=== PATIENT | male | born 1945 | race Caucasian/White ===

== ENCOUNTER → 2016-09-03 | Outpatient (CLI) | payer MEDICARE, BC ==
[~2016-09-03] MED LIST: ASPI-650; PRAV40TA76; SILD25TA5; TERA1CAP36
--- NOTE | 2016-09-04 14:07 | RADRPT ---
PROCEDURE: Left knee radiographs. CLINICAL INDICATION: Left knee pain. TECHNIQUE: Four views. Weight bearing. Frontal, lateral, oblique, and patellar view. COMPARISON: 05/20/2014. FINDINGS: There is no fracture or dislocation. The soft tissues are normal. There are degenerative changes with medial joint compartment narrowing, subarticular sclerosis, and subarticular cysts, worse than seen previously. There is no other lytic or blastic lesion. There is no radiopaque foreign body. IMPRESSION: 1. Moderate to severe degenerative changes of the left knee involving the medial joint compartment, worse than seen previously. RPTAT: QQ .Fransisco Arreola MD, MD Date Time Electronically viewed and signed by .Fransisco Arreola MD, MD on 09/04/2016 14:07 .R/
== END | disposition home or self-care (01) ==
LOC: HKI 13:50
PROVIDERS: ATTEND Orthopaedic Surgery
DX: M17.12 Unilateral primary osteoarthritis, left knee (principal); M25.562 Pain in left knee; Z96.651 Presence of right artificial knee joint
CPT/HCPCS: 73564; G0463

== ENCOUNTER → 2016-09-21 | Outpatient (CLI) | payer MEDICARE, BC ==
[~2016-09-21] MED LIST changes: +ASPI-664 PO; +ASPI325T32 PO; +CHOL100062 PO; +GLUC-137 PO; +HYDR-905 PO; +LACT1CAP47 PO; +LYRI25 PO; +PANT40TA4 PO; +RED600TA PO; +TERA5CAP3 PO; +TRAM50TA2 PO
--- NOTE | 2016-09-21 14:47 | RADRPT ---
PROCEDURE: Limited x-ray of both lower extremities. CLINICAL INDICATION: Bilateral leg pain. TECHNIQUE: Single frontal view of both lower extremities was obtained from the hips to the calves. COMPARISON: Left knee radiographs dated 09/03/2016. Right knee radiographs dated 05/20/2014. FINDINGS: The hips are not well seen due to overlying dense soft tissues. There is no obvious hip fracture or dislocation. The right knee has a total arthroplasty as seen previously. There are degenerative c hanges of the left knee with medial joint compartment narrowing, subarticular sclerosis, and subarti cular cysts. IMPRESSION: 1. Grossly normal. 2. Total right knee arthroplasty. 3. Degenerative changes of the left knee. RPTAT: QQ .Fransisco Arreola MD, MD Date Time Electronically viewed and signed by .Fransisco Arreola MD, on 09/21/2016 14:46 .R/
== END | disposition home or self-care (01) ==
LOC: HKI 10:18
PROVIDERS: ATTEND Orthopaedic Surgery
DX: Z01.818 Encounter for other preprocedural examination (principal); M17.12 Unilateral primary osteoarthritis, left knee; M25.562 Pain in left knee; Z96.651 Presence of right artificial knee joint
CPT/HCPCS: 77073; G0463

== ENCOUNTER 2016-09-27 07:53 | Inpatient (IN) | payer MEDICARE, BC ==
[2016-09-27] VITALS (22 sets, daily range): BP systolic 112–174; BP diastolic 57–76; PULSE 50–64; RESP 12–20; Ht 162.6 cm; Wt 77.2 kg
[~2016-09-27] VITALS: Ht 162.6 cm; Wt 77.2 kg
[~2016-09-27 07:53] MED LIST changes: -ASPI-664 PO; -ASPI325T32 PO; -CHOL100062 PO; -GLUC-137 PO; -HYDR-905 PO; -LACT1CAP47 PO; -LYRI25 PO; -PANT40TA4 PO; -RED600TA PO; +SOD CHLORIDE 0.9% IV ONE; +SOD CHLORIDE 0.9% IVPB ONE; -TERA5CAP3 PO; -TRAM50TA2 PO; +TRANEXAMIC ACID IV ONE; +TRANEXAMIC ACID IVPB ONE
[2016-09-27] MEDS ORDERED: PREGABALIN 300 MG PO X1 PO ONE (08:30)
[2016-09-27] MEDS ORDERED: CELECOXIB 400 MG PO X1 DOSE PO ONE (08:30)
[2016-09-27] MEDS ORDERED: BUPIVACAINE LIPOSOME/PF 266 MG/20 ML VIAL INFIL ONE (08:30)
[2016-09-27] MEDS ORDERED: PAIN COCKTAIL-CEFUROXIME IRR ONE ×7 (08:30)
[2016-09-27] MEDS ORDERED: traMADOL 50 MG TAB X 1 DOSE PO ONE (08:30)
[2016-09-27] MEDS ORDERED: oxyCODONE (CR) 10 MG TAB [oxyCONTIN] X1 DOSE PO ONE (08:30)
[2016-09-27] MEDS ORDERED: CEFAZOLIN 2GM/50 ML (PMX) 50 ML X1 BEFORE INCISION IVPB ONE (08:30)
[2016-09-27] MEDS ORDERED: EXPAREL NOTE (BUPIVICAINE LIPOSOMAL) XX SCH (08:30)
[2016-09-27] MEDS ORDERED: TERA5CAP3 PO (08:53)
[2016-09-27] MEDS ORDERED: ASPI-664 PO (08:54)
[2016-09-27] MEDS ORDERED: LACT1CAP47 PO (08:57)
[2016-09-27] MEDS ORDERED: RED600TA PO (08:58)
[2016-09-27] MEDS ORDERED: CHOL100062 PO (09:02)
[2016-09-27] MEDS ORDERED: GLUC-137 PO (09:03)
[2016-09-27 09:59] LABS: INR 0.92; PROTIME 12.4 Sec (12.2-14.2)
[2016-09-27 10:00] LABS: PARTIAL THROMBOPLASTIN TIME 32.6 Sec (25.0-35.0)
--- NOTE | 2016-09-27 10:11 | HPN ---
Date/Time of Note Date/Time of Note DATE: 09/27/16 TIME: 10:11 Interval H&P Admission Note Pt. seen H&P reviewed: No system changes No change from H&P on 09/12/16 by SUE Awan ERIK N. MD Sep 27, 2016 10:11
[2016-09-27] MEDS ORDERED: POLYMYXIN B 500000 UNIT INJ ONE (10:33)
[2016-09-27] MEDS ORDERED: VANCOMYCIN 1 GM INJ ONE (10:33)
[2016-09-27] MEDS ORDERED: SODIUM CL BACTERIOSTATIC 30 ML INJ ONE (10:33)
[2016-09-27] MEDS ORDERED: ONDANSETRON 4 MG INJ ONE (10:39)
[2016-09-27] MEDS ORDERED: FENTAnyl 50 MCG/ML VIAL ONE (10:39)
[2016-09-27] MEDS ORDERED: PROPOFOL 100 ML ONE ×2 (10:39→11:58)
[2016-09-27] MEDS ORDERED: MIDAZOLAM 1 MG/ML 2 ML INJ ONE (10:39)
[2016-09-27] MEDS ORDERED: DEXAMETHASONE 4 MG/ML 1 ML INJ ONE (10:39)
[2016-09-27] MEDS ORDERED: METOCLOPRAMIDE 10 MG INJ ONE (10:39)
[2016-09-27] MEDS ORDERED: CEFAZOLIN 1 GM INJ ONE (10:51)
[2016-09-27] MEDS ORDERED: EPHEDrine SULFATE 50 MG/5 ML SYG ONE (11:10)
[2016-09-27] MEDS ORDERED: BACITRACIN 50000 UNITS INJ IRR ONE (11:57)
[2016-09-27] MEDS ORDERED: METOCLOPRAMIDE 10 MG INJ IV PRN (12:00)
[2016-09-27] MEDS ORDERED: DIPHENHYDRAMINE 50 MG INJ IV PRN (12:00)
[2016-09-27] MEDS ORDERED: ONDANSETRON 4 MG INJ IV PRN ×2 (12:00→13:30)
[2016-09-27] MEDS ORDERED: HYDROmorphONE (0.2 MG/ML) 10ML SYG IV PRN ×3 (12:00)
[2016-09-27] MEDS ORDERED: MEPERIDINE 25 MG INJ IV PRN (12:00)
[2016-09-27] MEDS ORDERED: HYDROmorphONE 2 MG/ML SYG ONE (12:39)
[2016-09-27] MEDS ORDERED: NA PHOSPHATE/BIPHOS 133 ML ENEMA PR PRN (13:30)
[2016-09-27] MEDS ORDERED: DIPHENHYDRAMINE 25 MG CAP PO PRN (13:30)
[2016-09-27] MEDS ORDERED: oxyCODONE 5 MG TAB PO PRN (13:30)
[2016-09-27] MEDS ORDERED: MAGNESIUM HYDROXIDE 30ML CUP PO PRN (13:30)
[2016-09-27] MEDS ORDERED: NACL 0.9% 3 ML SYG IV SCH (13:30)
[2016-09-27] MEDS ORDERED: ASPIRIN (EC) 325 MG TAB PO ONE (13:30)
[2016-09-27] MEDS ORDERED: BISACODYL 10 MG SUPP PR PRN (13:30)
[2016-09-27] MEDS ORDERED: HYDROmorphONE 1 MG/ML SYG IV PRN (13:30)
--- NOTE | 2016-09-27 13:36 | OPPN ---
Date/Time of Note Date/Time of Note DATE: 09/27/16 TIME: 13:35 Operative/Procedure Note Dictation # [id number] Pre-Operative Diagnosis Left Knee OA Post-Operative Diagnosis Same Procedure Left TKA [employer] Officer: SATURNINO WHITAKER PA-C Anesthesiologist: ELIDA CAMACHO MD Findings Severe OA Blood Usage/Administration None Implants/Grafts Depuy Attune TKA Estimated blood loss: 50 - 100 ml's Drains Hemovac x 1 Specimens Bone and soft tissue Complications: None Anesthesia type: spinal IGOR GONZALES MD Sep 27, 2016 13:36
--- NOTE | 2016-09-27 13:52 | OPR ---
DATE OF OPERATION: 09/27/2016 PREOPERATIVE DIAGNOSIS: Left knee osteoarthritis. POSTOPERATIVE DIAGNOSIS: Left knee osteoarthritis. OPERATION PERFORMED: Left total knee arthroplasty. SURGEON: Igor Serrato MD BRAND ADVOCATE: Singh Gifford MD COMPONENTS USED: DePuy Attune size 5 femoral component, size 5 tibial baseplate , 6 mm polyethylene insert, and a 35 patellar button. ANESTHESIA: Spinal plus general endotracheal intubation plus periarticular injection. ANESTHESIOLOGIST: Dr. Arizmendi TOURNIQUET TIME: 61 minutes. ESTIMATED BLOOD LOSS: 50 mL INTRAVENOUS FLUIDS: 2 liters of crystalloid. SPECIMENS: Bone and soft tissue. DRAINS: Hemovac x1. COMPLICATIONS: None. DISPOSITION: The patient tolerated the procedure well and was taken to the recovery room in stable condition. INDICATIONS: The patient is a 70-year-old gentleman who has had progressive worsening pain in the left knee with radiographic evidence of severe osteoarthritis. He has failed nonsurgical means of treatment to control his pain including activity modifications, pain medications, intra-articular injections and ambulatory assist devices. Despite these measures, he has had worsening pain and I felt he would benefit from a total knee arthroplasty. The risks, benefits, and alternatives of the procedure were explained in detail to the patient. I explained the risks of the surgery to include but not be limited to, bleeding and possible need for blood transfusion; infection; pain; stiffness; neurovascular injury with possible numbness, weakness, and/or paralysis anywhere from the knee down to the toes; fracture; instability; dislocation; wear and/or loosening of the prosthesis and possible need for future revision; blood clots; pulmonary embolism; and anesthetic complications such as heart attack, stroke, GI bleed, pneumonia, and/or . Ample time was allowed for the patient to ask questions, all of which were addressed and answered. The patient understood the risks involved and wished to proceed. Informed consent was signed prior to the procedure. PROCEDURE: The patient's left knee was initialed with a marking pen in the preoperative area to identify the correct operative site. The patient was brought to the operating room and transferred from the [facility] to the operating table where a spinal anesthetic was administered. The patient was then anesthetized and intubated. A Sotelo catheter was placed. A timeout was performed to confirm that the left leg was the correct operative site. The patient was given 2 g of Ancef within one hour prior to the procedure. A tourniquet was placed on the operative proximal thigh. The operative knee and lower extremity were prepped and draped in the usual sterile fashion. The operative lower extremity was elevated and exsanguinated with an Esmarch tourniquet. The proximal thigh tourniquet was inflated to 300 mmHg. The knee was flexed. A midline incision was made and carried down through the subcutaneous tissue and fat with sharp dissection. Limited medial and lateral flaps were raised. A median patellar approach was performed. Synovial fluid was normal in color and consistency. The patella was everted and the knee flexed. There were severe tricompartmental osteoarthritic changes noted. A medial release was performed at the joint line to the midcoronal plane. The ACL and PCL and remnants of the menisci were excised. The stepped drill was used to open up the femoral canal which was irrigated and sucked dry. The intramedullary guide rafael was passed up the femur, and the distal cutting block was pinned into place for a 5 degree valgus cut, taking 10 mm of bone off distally. The oscillating saw was used to make the cut. The tibia was subluxed anteriorly. The tibial cutoff jig was placed over the center of the talus distally and over the junction of the medial and middle third of the tibial tubercle proximally. The guide was pinned into place and the oscillating saw was used to make the cut. The tibia was sized. The extension gap was checked and accommodated a 6 mm spacer block with the knee in full extension. There was no varus or valgus instability. At this point, the femur was sized with the posterior referencing guide. Two holes were drilled in 3 degrees of external rotation. The two holes were in line with the transepicondylar axis, perpendicular to Iroquois's line, and in line with the tibial cutoff jig brought up with the knee flexed 90 degrees and tensed with 2 lamina spreaders, suggesting the femoral rotation was correct. The four-in-one cutting block was pinned into place. The anterior and posterior cuts and chamfer cuts were made with the oscillating saw. The flexion gap was checked and accommodated the 6 mm spacer block at 90 degrees. There was no varus or valgus instability, suggesting the flexion and extension gaps were now equal. The central box was cut out on the femur. The tibia was drilled and punched in proper rotation. Trial components were placed into position with a trial insert. The patella was cut from 25 mm down to 16 mm and sized. Three holes were drilled and the trial button placed in position. With all the trials now in place, the knee was taken through range of motion and came to full extension as evidenced by the fact that with the foot on my abdomen and axial loading, there was no tendency for the knee to flex. The knee was able to be flexed to 125 degrees with good patellar tracking with no lateral tilt or subluxation. At this point, I was satisfied with the overall range of motion, stability, and patellar tracking. The trials were removed. The real components were opened. Two bags of cement were mixed, one with and one without premixed antibiotic. The knee was irrigated with antibiotic saline and sucked dry. Once the cement was in a doughy stage, the real components were cemented into place. The knee was held in full extension, and the patellar component was held with a patellar clamp. All excess cement was removed with curettes. As the cement was hardening, the synovial/capsular layer was infiltrated with a mixture of 150 mg of 0.5% Bupivacaine, 8 mg of Duramorph, 300 mcg of epinephrine, 30 mg of Toradol, 100 mcg of clonidine, 750 mg of cefuroxime and 86 mL of normal saline, followed by an injection of 266 mg of liposomal Bupivacaine. A Hemovac drain was placed in the deep portion of the wound and brought out the anterolateral thigh. Once the cement was completely hardened, the trial liner was removed, and the real insert was opened. The tourniquet was let down, and there was good hemostasis. The knee was then irrigated with a mixture of betadine/saline and then antibiotic saline with pulsatile lavage. The real insert was impacted into the tibia and reduced onto to the femur. The arthrotomy was closed with a few interrupted #1 Ethibond in a [id number] fashion, and then closed in a watertight fashion with a running #2 Stratafix suture. Knee flexion was checked against gravity and came to 125 degrees. The subcutaneous layer was irrigated and closed with 2-0 Stratafix, and then 3-0 Vicryl and then aren on the skin. The wound was covered with an occlusive dressing, and secured with cast padding and a bias dressing. The drain was secured with 3-0 nylon. Dictated By: IGOR HAWKINS/TITI Conf#: [id number] DID#: [id number] MTDD
[2016-09-27 14:10] LABS: HEMOGLOBIN 12.4 g/dl (14.0-18.0)
[2016-09-27 14:12] LABS: POTASSIUM 4.8 mmol/L (3.5-5.1)
[2016-09-27] MEDS: CEFAZOLIN 2 GM/50 ML (PMX) 50 ML IVPB SCH ×2 (14:13→23:11)
[2016-09-27 14:20] LABS: CALCIUM 8.5 mg/dl (8.4-10.2); CREATININE 1.09 mg/dl (0.61-1.24)
--- NOTE | 2016-09-27 14:20 | RADRPT ---
PROCEDURE: XR left knee. CLINICAL INDICATION: Knee pain. TECHNIQUE: AP and lateral views are available for review. COMPARISON: No comparison available FINDINGS: There is a postoperative total knee replacement. There is no evidence of loosening of the prosthesis . The osseous structures are normal in mineralization, architecture and alignment No acute fracture or dislocation is seen.No osseous lesions are identified. There are postoperative soft tissue natarajan es. A drain is in place. . IMPRESSION: Unremarkable postoperative total knee replacement. RPTAT: HGDB .Mo Zacarias MD, MD Date Time Electronically viewed and signed by .Mo Zacarias MD, on 09/27/2016 14:19 .B/
--- NOTE | 2016-09-27 14:20 | PN ---
Date/Time of Note Date/Time of Note DATE: 09/27/16 TIME: 14:18 Assessment/Plan Lines/Catheters IV Catheter Type (from Nrsg): Peripheral IV Assessment/Plan Assessment/Plan Stable in PACU, s/p left TKA -continue abx -pain meds as needed -ASA/SCDs for DVT prophylaxis -OOB with PT -check AM labs -monitor drain -d/c vergara in AM XR of the left knee shows good alignment with no evidence of fracture or dislocation Subjective 24 Hr Interval Summary Doing well in PACU. Denies pain. Moving all extremities.l Exam/Review of Systems Vital Signs Vitals Vital Signs Date Time Temp Pulse Resp B/P Pulse Ox O2 Delivery O2 Flow Rate FiO2 09/27/16 13:41 98.4 09/27/16 13:30 63 18 124/64 99 Nasal Cannula 2.0 Exam Free Text/Dictation Dressing dry Incision clean, dry, and intact without redness or drainage Thigh soft 5/5 Quadriceps, Tibialis Anterior, EHL, Gastroc, Soleus, Peroneals Normal sensation Palpable DT/PT, CR <2 sec No distal edema Results Result Diagram: 09/27/16 1345 09/27/16 1345 SATURNINO WHITAKER PA-C Sep 27, 2016 14:19
[2016-09-27] MEDS ORDERED: BACITRACIN 50000 UNITS INJ ONE (14:58)
[2016-09-27] MEDS ORDERED: PHENYLephrine (100 MCG/ML) 5ML SYG ONE ×4 (16:20→17:02)
[2016-09-27] MEDS: LACTATED RINGER'S 1,000 ML IV SCH ×3 (16:29→18:30)
[2016-09-27] MEDS ORDERED: TRANEXAMIC ACID 770 MG in SOD CHLORIDE 0.9% 100 ML IVPB ONE ×2 (16:30→19:30)
[2016-09-27] MEDS: traMADol 50 MG TAB PO SCH ×2 (17:58→23:58)
[2016-09-27] MEDS: PANTOPRAZOLE (EC) 40 MG TAB PO SCH (17:58)
[2016-09-27] MEDS: ACETAMINOPHEN 1000MG/100ML IV 100 ML IVPB SCH ×2 (17:58→23:57)
[2016-09-27] MEDS: PREGABALIN 25 MG CAP PO SCH (20:38)
[2016-09-27] MEDS: DOCUSATE SODIUM 100 MG CAP PO SCH (20:39)
[2016-09-27] MEDS: AMLODIPINE 2.5 MG TAB PO SCH (20:39)
[2016-09-27] MEDS: CHOLECALCIFEROL 1,000 UNIT TAB PO SCH (20:39)
[2016-09-27] MEDS ORDERED: DOXAZOSIN 2 MG TAB PO SCH (21:00)
[2016-09-27] MEDS: TERAZOSIN 5 MG CAP PO SCH (21:47)
[2016-09-28] MEDS: oxyCODONE 5 MG TAB PO PRN ×4 (01:22→21:35)
[2016-09-28] MEDS: LACTATED RINGER'S 1,000 ML IV SCH ×6 (01:22→21:29)
[2016-09-28] MEDS: ACETAMINOPHEN 1000MG/100ML IV 100 ML IVPB SCH ×2 (05:43→11:57)
[2016-09-28] MEDS: PANTOPRAZOLE (EC) 40 MG TAB PO SCH ×2 (05:43→17:44)
[2016-09-28] MEDS: traMADol 50 MG TAB PO SCH ×4 (05:44→23:54)
[2016-09-28 05:49] LABS: HEMATOCRIT 36.9 % (42.0-52.0); HEMOGLOBIN 12.5 g/dl (14.0-18.0)
[2016-09-28 06:01] LABS: POTASSIUM 5.1 mmol/L (3.5-5.1)
[2016-09-28 06:04] LABS: CREATININE 1.01 mg/dl (0.61-1.24)
[2016-09-28 06:05] LABS: CALCIUM 8.5 mg/dl (8.4-10.2)
[2016-09-28 06:08] VITALS: BP 150/66; PULSE 50; RESP 19
[2016-09-28] MEDS: CEFAZOLIN 2 GM/50 ML (PMX) 50 ML IVPB SCH (06:14)
[2016-09-28 06:17] VITALS: BP 127/62
--- NOTE | 2016-09-28 07:28 | CONS ---
DATE OF ADMISSION: 09/27/2016 DATE OF CONSULTATION: 09/27/2016 TYPE OF CONSULTATION: Gastroenterology. Thank you very much for allowing me to evaluate this 70-year-old male who just underwent left total knee arthroplasty. HISTORICAL EVENTS: As you well know, this patient has had progressive disabling pain involving his left knee and elected to proceed with surgical intervention. Postoperatively, he denies cough, whee zing, shortness of breath, nausea, vomiting, abdominal or chest pain. PAST MEDICAL HISTORY: Includes: 1. Colon resection for neoplasm in 2008, erectile dysfunction. 2. History of hyperglycemia. 3. Hyperlipidemia. 4. Vitamin D deficiency. 5. History of gastroesophageal reflux without esophagitis. ALLERGIES: NONE. PAST MEDICAL HISTORY: Includes: 1. Surgery for biceps rupture, left. 2. Surgery for Achilles tendon disorder, right. 3. Inguinal hernia repair, umbilical hernia repair, right total knee surgery, left knee arthroscopi c surgery. FAMILY HISTORY: Positive for lung and brain cancer and multiple sclerosis. SOCIAL HISTORY: He has 3 children, retired. MEDICATIONS: 1. Aspirin. 2. Ocuvite. 3. Terazosin 2 mg nightly. PHYSICAL EXAMINATION: GENERAL: [place] male in no acute distress. VITAL SIGNS: BP 122/80, respirations are 20, he was afebrile. His heart rate was ____. EYES: Extraocular muscles were full. NOSE, MOUTH, AND THROAT: Normal. NECK: Supple. There was no jugular venous distention, thyroid enlargement or adenopathy. Carotids 2+. LUNGS: Clear. HEART: Rhythm regular. ABDOMEN: Nontender. Liver and spleen were not palpable. No masses or tenderness were noted. EXTREMITIES: The left knee was bandaged. Right calf nontender. No edema. IMPRESSION: 1. Stable postop with asymptomatic bradycardia. His basal heart rate was ____ and this needs to be just simply monitored. 2. Status post left knee replacement, now doing well. 3. History of hyperlipidemia. No intervention needed. 4. Will evaluate daily with signs and symptoms of thromboembolic disease, having been given appropr iate thrombosis prophylaxis. Dictated By: PHILL RAPP MD MR/NTS Conf#: [id number] DID#: [id number] CC: IGOR GONZALES MD;*EndCC*
--- NOTE | 2016-09-28 07:32 | PDOCDIS ---
Discharge Instructions DIAGNOSIS Discharge Diagnosis: s/p left TKA CONDITION Patient Condition: Good HOME CARE INSTRUCTIONS: Diet Instructions: RegularSpecial Diet: REGULAR ACTIVITY: Activity Restrictions: Slowly Increase Activity Rest between Activity Avoid heavy lifting Do not operate Machinery Do not operate Power Tool Avoid Heavy Housework Keep Limb Elevated Weight Bearing Bathing Restrictions: Shower FOLLOW UP/APPOINTMENTS Appointments follow up in the office on 10/08/16 OTHER ORDERS: Other Orders: S/P TKA Physical Therapy: Three times per week at home x 2 weeks Daily in Rehab/SNF WB STATUS: WBAT 1. Strengthening exercises for both upper and un-operated lower extremities. 2. Gait training with front wheeled walker 3. Active range of motion exercises to operative knee. 4. When not working on knee range of motion exercises, distal towel roll under operative ankle/distal calf to promote full extension. 5. DO NOT PUT ANYTHING BEHIND OPERATIVE KNEE!!! 6. Quadriceps and hamstring strengthening. 7. May switch to cane in contra lateral hand 6 weeks after surgery. 8. Physical Therapy can open case if nursing is not available. 9. Use Ice Machine as instructed from date of surgery while at rest 3X/day. 10. Patient requires mobile SCDs to reduce risk of developing DVT following TKA. Patient will use the mobile SCDs for 30 days postoperatively. Bathing assistance by home health aide twice weekly if Medicare patient. Occupational Therapy: Evaluation for assistive devices and ADL training. Wound Care: Keep incision dry & covered with Tegaderm until first visit with Dr. Serrato Anticoagulation Orders: Enteric Coated Aspirin 325 mg po bid x 6 weeks from date of surgery Follow-up:Call for an appointment with Dr. Serrato in 1 week after discharged from hospital at DME Orders: FWW, 3-in-1 Commode, Polar ice machine, Mobile SCDs SATURNINO WHITAKER PA-C Sep 28, 2016 07:32
[2016-09-28] MEDS ORDERED: ASPI325T32 PO (07:34)
[2016-09-28] MEDS ORDERED: HYDR-905 PO (07:34)
[2016-09-28] MEDS ORDERED: TRAM50TA2 PO (07:34)
[2016-09-28] MEDS ORDERED: PANT40TA4 PO (07:34)
[2016-09-28] MEDS ORDERED: LYRI25 PO (07:34)
[2016-09-28 08:06] LABS: ADD UMIC NO; URINE BILIRUBIN (Dip) NEGATIVE (NEGATIVE); URINE BLOOD (Dip) NEGATIVE (NEGATIVE); URINE COLOR LT. YELLOW (YELLOW); URINE GLUCOSE (Dip) NEGATIVE (NEGATIVE); URINE KETONES (Dip) NEGATIVE (NEGATIVE); URINE LEUKOCYTE ESTERASE (Dip) NEGATIVE (NEGATIVE); URINE NITRITE (Dip) NEGATIVE (NEGATIVE); URINE TOTAL PROTEIN (Dip) NEGATIVE (NEGATIVE); URINE UROBILINOGEN (Dip) 0.2 E.U./dL (0.1-1.0)
--- NOTE | 2016-09-28 08:15 | CONS ---
Date/Time of Note Date/Time of Note DATE: 09/28/16 TIME: 08:12 Assessment/Plan Assessment/Plan Additional Assessment/Plan 1. Stable post op left knee replacement 2. Prostatism, will check post void residual once vergara is removed. 3. Labs rev Consultation Date/Type/Reason Admit Date/Time Sep 27, 2016 at 07:53 Initial Consult Date Detailed Summary Respiratory: No cough, No shortness of breath Cardiovascular: No chest pain Gastrointestinal: no complaints Genitourinary: other (vergara in place) Musculoskeletal: bone/joint pain (mild left knee pain) Exam/Review of Systems Vital Signs Vitals Vital Signs Date Time Temp Pulse Resp B/P Pulse Ox O2 Delivery O2 Flow Rate FiO2 09/28/16 06:17 127/62 09/28/16 06:08 97.8 50 19 99 Venturi Mask 2.0 Intake and Output 09/27/16 09/27/16 09/28/16 15:00 23:00 07:00 Intake Total 2100 ml 1515.4 ml 2800 ml Output Total 200 ml 1000 ml 2400 ml Balance 1900 ml 515.4 ml 400 ml Exam Neck: No jvd Respiratory: clear to auscultation Cardiovascular: regular rate and rhythm Gastrointestinal: soft Extremities: No edema (and no calf tend bilat) Results Result Diagram: 09/28/16 0415 09/28/16 0440 Results 24 hrs Laboratory Tests Test 09/27/16 09:25 09/27/16 13:45 09/28/16 04:01 09/28/16 04:15 Activated Partial Thromboplast Time 32.6 INR International Normalized Ratio 0.92 Prothrombin Time 12.4 Prothrombin Time Ratio 1.0 Anion Gap 15 Blood Urea Nitrogen 22 H Calcium Level 8.5 Carbon Dioxide Level 27 Chloride Level 104 Creatinine 1.09 Glucose Level 150 Hematocrit 37.0 L 36.9 L Hemoglobin 12.4 L 12.5 L Potassium Level 4.8 Sodium Level 141 Thyroid Stimulating Hormone (TSH) 0.562 Test 09/28/16 04:40 09/28/16 05:00 Anion Gap 14 Blood Urea Nitrogen 17 Calcium Level 8.5 Carbon Dioxide Level 28 Chloride Level 104 Creatinine 1.01 Glucose Level 107 # Magnesium Level 1.8 Potassium Level 5.1 Sodium Level 141 Urine Bilirubin NEGATIVE Urine Clarity CLEAR Urine Color LT. YELLOW Urine Glucose NEGATIVE Urine Hemoglobin NEGATIVE Urine Ketones NEGATIVE Urine Leukocyte Esterase NEGATIVE Urine Nitrite NEGATIVE Urine Specific [place] 1.015 Urine Total Protein NEGATIVE Urine Urobilinogen 0.2 E.U./dL Urine pH 5.5 Medications Medications Current Medications Lactated Ringer's (Lr) 1,000 ml @ 100 mls/hr Q10H IV ; Start 09/27/16 at 08:30 Miscellaneous Information 1 ea NOTE XX ; Start 09/27/16 at 08:30; Stop 10/01/16 at 08:29 Cholecalciferol (Vitamin D) 2,000 unit BID PO Last administered on 09/27/16 20: 39; Admin Dose 2,000 UNIT; Start 09/27/16 at 21:00 Terazosin HCl 5 mg 5 mg HS PO Last administered on 09/27/16 21:47; Admin Dose 5 MG; Start 09/27/16 at 21:00 Lactated Ringer's (Lr) 1,000 ml @ 125 mls/hr Q8H IV Last administered on 01:22; Admin Dose 125 MLS/HR; Start 09/27/16 at 13:29 Celecoxib 200 mg 200 mg DAILY PO ; Start 09/28/16 at 09:00 Acetaminophen (Ofirmev 1000mg/ 100ml Iv) 100 ml @ 400 mls/hr Q6 IVPB Last administered on 09/28/16 05:43; Admin Dose 400 MLS/HR; Start 09/27/16 at 18:00; Stop 09/28/16 at 17:59 Tramadol HCl (Ultram) 50 mg Q6 PO Last administered on 09/28/16 05:44; Admin Dose 50 MG; Start 09/27/16 at 18:00; Stop 09/30/16 at 17:59 Oxycodone HCl (Roxicodone) 5 mg Q4H PRN PO PAIN LEVEL 1-3; Start 09/27/16 at 13: 30 Oxycodone HCl (Roxicodone) 10 mg Q4H PRN PO PAIN LEVEL 4-7 Last administered on 09/28/16 01:22; Admin Dose 10 MG; Start 09/27/16 at 13:30 Hydromorphone HCl (Dilaudid) 1 mg Q3H PRN IV PAIN LEVEL 8-10; Start 09/27/16 at 13:30 Ondansetron HCl (Zofran Inj) 4 mg Q6H PRN IV NAUSEA AND/OR VOMITING; Start 09/27 at 13:30 Bisacodyl (Dulcolax Supp) 10 mg Q12H PRN [place] CONSTIPATION; Start 09/27/16 at 13: 30 Magnesium Hydroxide (Milk Of Mag) 30 ml BID PRN PO CONSTIPATION; Start 09/27/16 at 13:30 Sodium Biphosphate/ Sodium Phosphate (Fleet Enema) 133 ml DAILY PRN [place] CONSTIPATION; Start 09/27/16 at 13:30 Docusate Sodium (Colace) 100 mg BID PO Last administered on 09/27/16 20:39; Admin Dose 100 MG; Start 09/27/16 at 21:00 Diphenhydramine HCl (Benadryl) 25 mg Q6H PRN PO PRURITUS; Start 09/27/16 at 13: 30 Aspirin (Ecotrin) 325 mg BID PO ; Start 09/28/16 at 09:00 Pantoprazole (Protonix Tab) 40 mg BID@06,18 PO Last administered on 09/28/16 05:43; Admin Dose 40 MG; Start 09/27/16 at 18:00 Pregabalin (Lyrica) 50 mg BID PO Last administered on 09/27/16 20:38; Admin Dose 50 MG; Start 09/27/16 at 21:00 Amlodipine Besylate (Norvasc) 2.5 mg BID PO Last administered on 09/27/16 20:39 ; Admin Dose 2.5 MG; Start 09/27/16 at 21:00 PHILL RAPP MD Sep 28, 2016 08:15
[2016-09-28 08:38] VITALS: BP 141/65; RESP 18
--- NOTE | 2016-09-28 08:43 | PN ---
Date/Time of Note Date/Time of Note DATE: 09/28/16 TIME: 08:41 Assessment/Plan Lines/Catheters IV Catheter Type (from Nrsg): Peripheral IV Sotelo in Place (from Nrsg): Yes Assessment/Plan Assessment/Plan Stable POD #1, s/p left TKA -d/c abx -pain meds as needed -ASA/SCDs for DVT prophylaxis -OOB with PT -drain removed -check AM labs -d/c planning. Will plan to go home upon discharge Subjective 24 Hr Interval Summary Doing well. No acute overnight events. Denies significant pain. VSS, afebrile. Would like to go home upon discharge. Exam/Review of Systems Vital Signs Vitals Vital Signs Date Time Temp Pulse Resp B/P Pulse Ox O2 Delivery O2 Flow Rate FiO2 09/28/16 08:38 97.9 47 18 141/65 98 09/28/16 06:08 Venturi Mask 2.0 Intake and Output 09/27/16 09/27/16 09/28/16 15:00 23:00 07:00 Intake Total 2100 ml 1515.4 ml 2800 ml Output Total 200 ml 1000 ml 2400 ml Balance 1900 ml 515.4 ml 400 ml Exam Free Text/Dictation Hemovac: 100cc Dressing dry Incision clean, dry, and intact without redness or drainage Thigh soft 5/5 Quadriceps, Tibialis Anterior, EHL, Gastroc, Soleus, Peroneals Normal sensation Palpable DT/PT, CR <2 sec No distal edema Results Result Diagram: 09/28/16 0415 09/28/16 0440 SATURNINO WHITAKER PA-C Sep 28, 2016 08:42
[2016-09-28] MEDS: CHOLECALCIFEROL 1,000 UNIT TAB PO SCH ×2 (08:51→20:25)
[2016-09-28] MEDS: DOCUSATE SODIUM 100 MG CAP PO SCH ×2 (08:51→20:29)
[2016-09-28] MEDS: ASPIRIN (EC) 325 MG TAB PO SCH ×2 (08:51→20:26)
[2016-09-28] MEDS: CELECOXIB 200 MG CAP PO SCH (08:51)
[2016-09-28] MEDS: PREGABALIN 25 MG CAP PO SCH ×2 (08:55→20:24)
[2016-09-28] MEDS: AMLODIPINE 2.5 MG TAB PO SCH ×2 (08:56→20:24)
[2016-09-28 19:33] VITALS: BP 138/65; RESP 18
[2016-09-28] MEDS: TERAZOSIN 5 MG CAP PO SCH (20:27)
[2016-09-29] MEDS: LACTATED RINGER'S 1,000 ML IV SCH ×3 (00:30→10:30)
[2016-09-29] MEDS: oxyCODONE 5 MG TAB PO PRN ×3 (01:51→12:34)
[2016-09-29 05:14] LABS: HEMATOCRIT 36.2 % (42.0-52.0); HEMOGLOBIN 12.1 g/dl (14.0-18.0)
[2016-09-29 05:21] LABS: POTASSIUM 4.1 mmol/L (3.5-5.1)
[2016-09-29 05:23] LABS: CREATININE 1.1 mg/dl (0.61-1.24)
[2016-09-29 05:24] LABS: CALCIUM 8.2 mg/dl (8.4-10.2)
[2016-09-29] MEDS: traMADol 50 MG TAB PO SCH ×2 (06:40→12:30)
[2016-09-29] MEDS: PANTOPRAZOLE (EC) 40 MG TAB PO SCH (06:40)
[2016-09-29 08:17] VITALS: BP 159/69; RESP 18
--- NOTE | 2016-09-29 08:28 | PN ---
Date/Time of Note Date/Time of Note DATE: 09/29/16 TIME: 08:24 Assessment/Plan VTE Prophylaxis VTE Prophylaxis Intervention: ambulation, SCD's, other (Aspirin 325 mg twice daily) Lines/Catheters IV Catheter Type (from Nrsg): Saline Lock Sotelo in Place (from Nrsg): No Assessment/Plan Assessment/Plan -Pain Meds as needed -Dress change performed today -ASA for DVT Prophylaxis x 6 weeks outpatient discussed. -Continue monitoring as outpatient on discharge -Follow-up at scheduled postop outpatient appointment or sooner if there is any issue. -Tegaderm dressings given with specific instructions to use as outpatient to keep wound dry until aern are moved around 10 days. -Patient Stable -Discharge Home with home health provided by [facility]. Subjective 24 Hr Interval Summary 70-year-old male postop day 2 left total knee arthroplasty. Patient continues to do well. Reports 3/10 pain with activity. Up and out of bed and walking using front wheeled walker with physical therapy. Denies any calf pain, shortness of breath or chest pain/tightness. Patient would like to go home today. Constitutional: ambulates, improved Pain Control: mild Exam/Review of Systems Vital Signs Vitals Vital Signs Date Time Temp Pulse Resp B/P Pulse Ox O2 Delivery O2 Flow Rate FiO2 09/29/16 08:17 97.4 50 18 159/69 97 09/28/16 06:08 Venturi Mask 2.0 Intake and Output 09/28/16 09/28/16 09/29/16 15:00 23:00 07:00 Intake Total 350 ml 1040 ml 1400 ml Output Total 1000 ml 1600 ml Balance 350 ml 40 ml -200 ml Exam Free Text/Dictation -Hemovac: Removed -Incision: Clean, Dry and Intact without any redness or drainage -5/5 Tibialis Anterior, EHL Gastrocnemius/Soleus and Peroneals -5-10 lag from full extension. Able to flex actively up to 70. -Normal Sensation -Palpable DP/PT, Capillary Refill <2 secs -No Distal Edema -Negative Christie Sign/No calf pain -Toes Freely Movable Constitutional: alert, oriented, well developed Results Result Diagram: 09/29/16 0433 09/29/16 0433 MÓNICA PEACOCK PA-C Sep 29, 2016 08:28
--- NOTE | 2016-09-29 08:54 | PN ---
Date/Time of Note Date/Time of Note DATE: 09/28/16 TIME: 10:04 Anesthesia Note: A 70 year mal s/p left knee arthroplasty under spinal and GA pod# 1 doing well, pain is controlled, no N/V, itching,headache. v/s stable. back is clean Assessment/Plan VTE Prophylaxis VTE Prophylaxis Intervention: SCD's Lines/Catheters IV [facility] [place] Urinary Cath still in place: No Exam/Review of Systems Vital Signs Vitals Vital Signs Date Time Temp Pulse Resp B/P Pulse Ox O2 Delivery O2 Flow Rate FiO2 09/29/16 08:17 97.4 50 18 159/69 97 09/28/16 06:08 Venturi Mask 2.0 Intake and Output 09/28/16 09/28/16 09/29/16 15:00 23:00 07:00 Intake Total 350 ml 1040 ml 1400 ml Output Total 1000 ml 1600 ml Balance 350 ml 40 ml -200 ml Results Result Diagram: 09/29/16 0433 09/29/16 0433 Results 24 hrs Laboratory Tests Test 09/29/16 04:33 Anion Gap 12 Blood Urea Nitrogen 18 Calcium Level 8.2 L Carbon Dioxide Level 30 Chloride Level 103 Creatinine 1.10 Glucose Level 114 Hematocrit 36.2 L Hemoglobin 12.1 L Potassium Level 4.1 Sodium Level 141 Medications Medications Current Medications Lactated Ringer's (Lr) 1,000 ml @ 100 mls/hr Q10H IV ; Start 09/27/16 at 08:30 Miscellaneous Information 1 ea NOTE XX ; Start 09/27/16 at 08:30; Stop 10/01/16 at 08:29 Cholecalciferol (Vitamin D) 2,000 unit BID PO Last administered on 09/28/16 20 :25; Admin Dose 2,000 UNIT; Start 09/27/16 at 21:00 Terazosin HCl 5 mg 5 mg HS PO Last administered on 09/28/16 20:27; Admin Dose 5 MG; Start 09/27/16 at 21:00 Lactated Ringer's (Lr) 1,000 ml @ 125 mls/hr Q8H IV Last administered on 01:22; Admin Dose 125 MLS/HR; Start 09/27/16 at 13:29 Celecoxib (Celebrex) 200 mg DAILY PO Last administered on 09/28/16 08:51; Admin Dose 200 MG; Start 09/28/16 at 09:00 Tramadol HCl (Ultram) 50 mg Q6 PO Last administered on 09/29/16 06:40; Admin Dose 50 MG; Start 09/27/16 at 18:00; Stop 09/30/16 at 17:59 Oxycodone HCl (Roxicodone) 5 mg Q4H PRN PO PAIN LEVEL 1-3; Start 09/27/16 at 13: 30 Oxycodone HCl (Roxicodone) 10 mg Q4H PRN PO PAIN LEVEL 4-7 Last administered on 09/29/16 01:51; Admin Dose 10 MG; Start 09/27/16 at 13:30 Hydromorphone HCl (Dilaudid) 1 mg Q3H PRN IV PAIN LEVEL 8-10; Start 09/27/16 at 13:30 Ondansetron HCl (Zofran Inj) 4 mg Q6H PRN IV NAUSEA AND/OR VOMITING; Start 09/27 at 13:30 Bisacodyl (Dulcolax Supp) 10 mg Q12H PRN [place] CONSTIPATION; Start 09/27/16 at 13: 30 Magnesium Hydroxide (Milk Of Mag) 30 ml BID PRN PO CONSTIPATION; Start 09/27/16 at 13:30 Sodium Biphosphate/ Sodium Phosphate (Fleet Enema) 133 ml DAILY PRN [place] CONSTIPATION; Start 09/27/16 at 13:30 Docusate Sodium (Colace) 100 mg BID PO Last administered on 09/28/16 20:29; Admin Dose 100 MG; Start 09/27/16 at 21:00 Diphenhydramine HCl (Benadryl) 25 mg Q6H PRN PO PRURITUS; Start 09/27/16 at 13: 30 Aspirin (Ecotrin) 325 mg BID PO Last administered on 09/28/16 20:26; Admin Dose 325 MG; Start 09/28/16 at 09:00 Pantoprazole (Protonix Tab) 40 mg BID@06,18 PO Last administered on 09/29/16 06:40; Admin Dose 40 MG; Start 09/27/16 at 18:00 Pregabalin (Lyrica) 50 mg BID PO Last administered on 09/28/16 20:24; Admin Dose 50 MG; Start 09/27/16 at 21:00 Amlodipine Besylate (Norvasc) 2.5 mg BID PO Last administered on 09/28/16t 20: 24; Admin Dose 2.5 MG; Start 09/27/16 at 21:00 ELIDA CAMACHO MD Sep 29, 2016 08:54
[2016-09-29] MEDS: CELECOXIB 200 MG CAP PO SCH (08:55)
[2016-09-29] MEDS: DOCUSATE SODIUM 100 MG CAP PO SCH (08:55)
[2016-09-29] MEDS: CHOLECALCIFEROL 1,000 UNIT TAB PO SCH (08:55)
[2016-09-29] MEDS: AMLODIPINE 2.5 MG TAB PO SCH (08:55)
[2016-09-29] MEDS: ASPIRIN (EC) 325 MG TAB PO SCH (08:55)
[2016-09-29] MEDS: PREGABALIN 25 MG CAP PO SCH (08:55)
--- NOTE | 2016-09-30 07:07 | DS ---
DATE OF ADMISSION: 09/27/2016 DATE OF DISCHARGE: 09/29/2016 CONDITION ON DISCHARGE: Stable. ADMITTING DIAGNOSIS: Left knee osteoarthritis. DISCHARGE DIAGNOSIS: Status post left total knee arthroplasty. PROCEDURE PERFORMED: Left total knee arthroplasty. HOSPITAL COURSE: This is a 70-year-old male who was seen in the clinic initially complaining of left knee pain. He had x-rays obtained which demonstrated advanced osteoarthritis of the left knee and it was thought he would benefit from a left total knee arthroplasty. On 09/27/2016, the patient was admitted and taken to the operating room where he underwent a left total knee arthroplasty. There were no intraoperative complications. The patient tolerated the procedure well. He was taken to the recovery room in stable condition. Pain was well controlled with oral pain medication. He was started on aspirin and SCDs for DVT prophylaxis. He remained hemodynamically stable and neurovascularly intact throughout his hospital stay. He began physical therapy on postoperative day 1 and was stable for discharge on postoperative day 2. Prior to discharge, the incision was inspected and noted to be clean, dry and intact. Dressing changes were done prior to the patient going home. LABORATORY ANALYSIS: Hemoglobin 12.1, hematocrit 36.2. Chemistry panel was within normal limits. DISCHARGE MEDICATIONS: 1. [place] 7.5/325 mg. 2. Tramadol 50 mg. 3. Lyrica 50 mg. 4. Protonix 40 mg. 5. Aspirin 325 mg. 6. Additionally, the patient is to resume all his normal home medications. DISCHARGE INSTRUCTIONS: The patient will be discharged home in stable condition. He is to resume a normal diet. Activity includes weightbearing as tolerated on the left lower extremity. He began physical therapy with home health. He will be discharged home with the medications noted above and is to resume all of his normal home medication. The patient is to call the office or go to the emergency room if any concerns including increased redness, swelling, drainage, fever or any concerns regarding the operation or site of incision. FOLLOWUP: The patient is to follow up in the office on 10/08/2016. Dictated By: SATURNINO VILLARREAL/TITI Conf#: [id number] DID#: [id number]
== END 2016-09-29 14:40 | disposition home health service (06) | DRG 470 ==
LOC: REC 07:53 → MS1 15:35
PROVIDERS: ADMIT Orthopaedic Surgery; ATTEND Orthopaedic Surgery
PROC: 0SRD0J9 Replacement of Left Knee Joint with Synthetic Substitute, Cemented, Open Approach (ICD-10-PCS; principal; 2016-09-27 10:30)
DX: M17.12 Unilateral primary osteoarthritis, left knee (principal); R00.1 Bradycardia, unspecified; N40.0 Benign prostatic hyperplasia without lower urinary tract symptoms; K21.9 Gastro-esophageal reflux disease without esophagitis
CPT/HCPCS: 73560; 80048; 81003; 83735; 84443; 85014; 85018; 85610; 85730; 86850; 86900; 86901; 86920; 87081; 87086; 88304; 88311; 97110; 97116; 97163; 97166; 97530; Z7610; C1776; C9290; J0131; J0171; J0690; J0697; J0735; J1100; J1170; J1885; J2175; J2250; J2274; J2370; J2405; J2765; J3010; J3370; J7120

== ENCOUNTER → 2016-10-08 | Outpatient (CLI) | END | disposition home or self-care (01) | DX: Z47.1 Aftercare following joint replacement surgery (principal); Z96.652 Presence of left artificial knee joint; I82.409 Acute embolism and thrombosis of unspecified deep veins of unspecified lower extremity ==

== ENCOUNTER → 2016-11-07 | Outpatient (CLI) | payer MEDICARE, BC ==
[~2016-11-07] MED LIST changes: -ASPI-650; +ASPI325T32 PO; +CHOL100062 PO; +GLUC-137 PO; +HYDR-905 PO; +LACT1CAP47 PO; +LYRI25 PO; +PANT40TA4 PO; -PRAV40TA76; +RED600TA PO; -SILD25TA5; -SOD CHLORIDE 0.9% IV ONE; -SOD CHLORIDE 0.9% IVPB ONE; -TERA1CAP36; +TERA5CAP3 PO; +TRAM50TA2 PO; -TRANEXAMIC ACID IV ONE; -TRANEXAMIC ACID IVPB ONE
== END | disposition home or self-care (01) ==
LOC: HKI 09:48
PROVIDERS: ATTEND Orthopaedic Surgery
DX: Z47.1 Aftercare following joint replacement surgery (principal); Z96.652 Presence of left artificial knee joint

== ENCOUNTER → 2017-01-07 | Outpatient (CLI) | payer MEDICARE, BC ==
--- NOTE | 2017-01-07 15:38 | RADRPT ---
PROCEDURE: XR left knee. CLINICAL INDICATION: Knee pain TECHNIQUE: AP weightbearing, lateral weightbearing and sunrise views are available for review. COMPARISON: 10/08/2016 FINDINGS: There is a total knee replacement. There is no evidence of loosening of the prosthesis. There is no evidence of hardware failure. The osseous structures are normal in mineralization, architecture and alignment No acute fracture or dislocation is seen. No osseous lesions are identified. The soft tiss ues are unremarkable . IMPRESSION: Unremarkable total knee replacement. RPTAT: HGDB .Mo Zacarias MD, MD Date Time Electronically viewed and signed by .Mo Zacarias MD, MD on 01/07/2017 15:37 .B/
== END | disposition home or self-care (01) ==
LOC: HKI 10:01
PROVIDERS: ATTEND Orthopaedic Surgery
DX: Z47.89 Encounter for other orthopedic aftercare (principal); Z96.653 Presence of artificial knee joint, bilateral
CPT/HCPCS: 73562; G0463